=== PATIENT | female | born 1980 | race Two or more races ===

== ENCOUNTER 2020-06-21 10:40 | Emergency (ER) | payer MEDICAID ==
[~2020-06-21] VITALS: Ht 152.4 cm; Wt 90.3 kg
[2020-06-21 10:50] VITALS: BP 136/88
[2020-06-21] MEDS ORDERED: LORA-259 PO (10:57)
--- NOTE | 2020-06-21 11:00 | NUR ---
Patient bibra from a nail [facility] c/o chest pain. On room air, breathing evenly and unlabored. Connected to the monitor and pulse ox. kept comfortable, will continue to monitor accordingly.
--- NOTE | 2020-06-21 11:09 | NUR ---
Patient discharged to home in stable condition. Written and verbal after care instructions given. Patient verbalizes understanding of instruction.IV removed. Catheter intact and site benign. Pressure and 4x4 applied to site. No bleeding noted.
== END 2020-06-21 11:08 | disposition home or self-care (01) ==
LOC: ER 10:54
DX: R07.89 Other chest pain (principal); F41.9 Anxiety disorder, unspecified; I10 Essential (primary) hypertension; E11.9 Type 2 diabetes mellitus without complications; Z79.899 Other long term (current) drug therapy